=== PATIENT | female | born 1965 | race Two or more races ===

== ENCOUNTER 2020-09-29 12:15 | Emergency (ER) | payer MEDICAID ==
[~2020-09-29] VITALS: Ht 157.5 cm; Wt 56.7 kg
[2020-09-29 12:30] VITALS: BP 128/75
--- NOTE | 2020-09-29 12:34 | Emergency Room Report ---
History of Present Illness General Chief Complaint: Dyspnea/Respdistress Source: Patient Present Illness [facility] Disclaimer: Please note that this report is being documented using DRAGON technology. This can lead to erroneous entry secondary to incorrect interpretation by the dictating instrument. HPI: 55-year-old female presents for evaluation shortness of breath. Tested positive for COVID-19 on 09/21. Recently finished course of antibiotics for bronchitis. She states when she got out of the shower today she felt short of breath and lightheaded. Denied palpitations, syncope, nausea, vomiting or diaphoresis. States she felt short of breath for a few minutes and is slowly resolved. Since her illness she is unable to take a deep breath as it precipitates coughing. She is reporting some midsternal chest pain with deep inspiration and with coughing. Denies fever or chills. Denies vomiting or diarrhea. Denies wheezing, lung disease, recent travel, hormone use, hemoptysis. PMH: Denied PSH: Breast augmentation Allergies: Denied Social Hx: Non-smoker Allergies: Coded Allergies: No Known Allergies (Unverified , 09/29/20) Review of Systems All Other Systems: negative except mentioned in HPI Physical Exam General: Awake and alert, no acute distress, saturating 99% on room air HEENT: NC/AT. EOMI. Chest Wall: Reproducible chest wall pain in the sternum. No palpable deformity, no crepitus. Cardiovascular: RRR. S1 and S2 normal. No murmur appreciated Resp: Normal work of breathing. No cough, wheezing or crackles appreciated Abdomen: Abdomen is soft, nondistended. Nontender Skin: Intact. No abrasions, laceration or rash over the exposed skin MSK: Normal tone and bulk. Moving all extremities. No obvious deformity. Neuro: Awake and alert. Mentating appropriately. Medical Decision Making Diagnostic Impression: Primary Impression: Pneumonia ER Course 55-year-old female presents for evaluation of shortness of breath. Differential includes was not limited to viral syndrome, pneumonia, persistent bronchitis, post COVID-19 syndrome, dehydration, palpitations, arrhythmia, ACS, pleuritic chest pain, chest wall pain, GERD among others. Patient is in no respiratory distress, physical exam reassuring, saturating 99% on room air. EKG is nonischemic. The patient's chest x-ray is concerning for bilateral infiltrates may represent persistent pneumonia. She just finished a course of azithromycin. Labs otherwise within normal limits including a negative troponin. She feels well and stable for outpatient follow-up. I will start her on Levaquin and she will follow up with her PMD. She will continue to quarantine and isolate from others. Discussed reasons to return to the ER. She understands and agrees with this treatment plan. Laboratory Tests Test 09/29/20 12:46 White Blood Count 5.5 K/UL (4.8-10.8) Red Blood Count 4.22 M/UL (4.20-5.40) Hemoglobin 13.5 G/DL (12.0-16.0) Hematocrit 39.6 % (37.0-47.0) Mean Corpuscular Volume 94 FL (80-99) Mean Corpuscular Hemoglobin 32.0 PG (27.0-31.0) H Mean Corpuscular Hemoglobin Concent 34.1 G/DL (32.0-36.0) Red Cell Distribution Width 11.3 % (11.6-14.8) L Platelet Count 266 K/UL (150-450) Mean Platelet Volume 6.7 FL (6.5-10.1) Neutrophils (%) (Auto) 74.7 % (45.0-75.0) Lymphocytes (%) (Auto) 18.4 % (20.0-45.0) L Monocytes (%) (Auto) 6.0 % (1.0-10.0) Eosinophils (%) (Auto) 0.7 % (0.0-3.0) Basophils (%) (Auto) 0.2 % (0.0-2.0) Sodium Level 139 MMOL/L (136-145) Potassium Level 4.3 MMOL/L (3.5-5.1) Chloride Level 103 MMOL/L (98-107) Carbon Dioxide Level 28 MMOL/L (21-32) Anion Gap 8 mmol/L (5-15) Blood Urea Nitrogen 13 mg/dL (7-18) Creatinine 0.8 MG/DL (0.55-1.30) Estimated Glomerular Filtration Rate > 60 mL/min (>60) Glucose Level 93 MG/DL (74-106) Calcium Level 8.7 MG/DL (8.5-10.1) Total Bilirubin 0.3 MG/DL (0.2-1.0) Aspartate Amino Transferase (AST) 52 U/L (15-37) H Alanine Aminotransferase (ALT) 41 U/L (12-78) Alkaline Phosphatase 63 U/L (46-116) Troponin I 0.003 ng/mL (0.000-0.056) Total Protein 7.7 G/DL (6.4-8.2) Albumin 3.3 G/DL (3.4-5.0) L Globulin 4.4 g/dL Albumin/Globulin Ratio 0.8 (1.0-2.7) L EKG Diagnostic Results Troponin ordered: Yes When was troponin ordered?: Sep 29, 2020 EKG Time: 12:44 Rate: normal Rhythm: NSR ST Segments: no acute changes Other Impression Sinus rhythm, normal axis, normal intervals, no ST segment changes. Rhythm Strip Diag. Results Rhythm Strip Time: 12:44 EP Interpretation: yes Rate: 75 Rhythm: NSR, no PVC's, no ectopy Chest X-Ray Diagnostic Results Chest X-Ray Diagnostic Results : Chest X-Ray Ordered: Yes # of Views/Limited/Complete: 1 View Indication: Chest Pain EP Interpretation: Yes Interpretation: no consolidation, no effusion, no pneumothorax, other - Bilateral breast implants Impression: No acute disease Electronically Signed by: Electronically signed by Dr. Tj Taylor MD Disposition: HOME, SELF-CARE Condition: Stable Scripts Levofloxacin* (LEVOFLOXACIN*) 750 Mg Tablet 750 MG ORAL DAILY for 5 Days, #5 TAB Prov: Tj Taylor MD 09/29/20 Acetaminophen* (TYLENOL EXTRA STRENGTH*) 500 Mg Tablet 500 MG ORAL Q8H PRN for Prn Headache/Temp > 101, #30 TAB 0 Refills Prov: Tj Taylor MD 09/29/20 Tj Taylor MD Sep 29, 2020 12:34
[2020-09-29 13:04] LABS: BASOPHILS % (AUTO) 0.2 % (0.0-2.0); EOSINOPHILS % (AUTO) 0.7 % (0.0-3.0); HEMATOCRIT 39.6 % (37.0-47.0); HEMOGLOBIN 13.5 G/DL (12.0-16.0); LYMPHOCYTES % (AUTO) 18.4 % (20.0-45.0); MEAN CORPUSCULAR VOLUME 94 FL (80-99); NEUTROPHILS % (AUTO) 74.7 % (45.0-75.0); PLATELET COUNT 266 K/UL (150-450); RED BLOOD COUNT 4.22 M/UL (4.20-5.40); RED CELL DISTRIBUTION WIDTH 11.3 % (11.6-14.8); WHITE BLOOD COUNT 5.5 K/UL (4.8-10.8)
[2020-09-29 13:17] LABS: ANION GAP 8 mmol/L (5-15); BLOOD UREA NITROGEN 13 mg/dL (7-18); CALCIUM 8.7 MG/DL (8.5-10.1); CARBON DIOXIDE 28 MMOL/L (21-32); CHLORIDE 103 MMOL/L (98-107); CREATININE 0.8 MG/DL (0.55-1.30); POTASSIUM 4.3 MMOL/L (3.5-5.1); SODIUM 139 MMOL/L (136-145)
[2020-09-29 13:22] LABS: ALANINE AMINOTRANSFERASE 41 U/L (12-78); ALBUMIN 3.3 G/DL (3.4-5.0); ALBUMIN/GLOBULIN RATIO 0.8 (1.0-2.7); ALKALINE PHOSPHATASE 63 U/L (46-116); ASPARTATE AMINO TRANSFERASE 52 U/L (15-37); BILIRUBIN,TOTAL 0.3 MG/DL (0.2-1.0)
[2020-09-29] MEDS ORDERED: TYLENOL EXTRA500 MG ORAL (13:44)
--- NOTE | 2020-09-29 13:47 | Diagnostic Imaging Report ---
Procedure: XRAY Chest 1v Reason for study: Reason For Exam: SOB Comparison films: None. FINDINGS: A single one view chest is obtained. Vascularity is normal. Hazy bilateral alveolar infiltrates noted right greater than left. Cardiac and mediastinal silhouette are within normal limits. CP angles are sharp. The bony thorax appear unremarkable. IMPRESSION: Bilateral infiltrates.
[2020-09-29 13:52] VITALS: BP 126/71
[2020-09-29] MEDS ORDERED: LEVOFLOXACIN750 MG ORAL (13:52)
== END 2020-09-29 13:56 | disposition home or self-care (01) ==
LOC: EMR 12:40
DX: J18.9 Pneumonia, unspecified organism (principal); Z98.82 Breast implant status
CPT/HCPCS: 36415; 71045; 80053; 84484; 85025; 93005; Z7502; 99284